=== PATIENT | female | born 1940 | race Caucasian/White ===

== ENCOUNTER 2017-04-09 20:26 | Emergency (ER) | payer OTHER, MEDICARE ==
[~2017-04-09] VITALS: Ht 152.4 cm; Wt 56.7 kg
[~2017-04-09 20:26] MED LIST: AMITRIPTYLINE25 MG PO; ANTIVERT 12.512.5 M1 PO; ATIVAN0.5 MG PO; CENTRUM SILVER1 TA1 PO; DEXILANT60 MG PO; DICYCLOMINE HYD20 MG PO; DILTIAZEM HYDR180 M1 PO; FUROSEMIDE40 MG PO; GABAPENTIN TAB600 MG PO; LASIX40 MG PO; LISINOPRIL40 MG PO; MASON NATURAL325 MG PO; METAMUCIL1 PAC PO; MIRAPEX 0.25M0.25 MG PO; NATURAL IRON65 MG PO; PRAMIPEXOLE D0.25 MG PO; PRAZOSIN HYDROCH2 MG PO; RANITIDINE HYD150 MG PO; ZOLPIDEM TARTRAT5 MG PO
--- NOTE | 2017-04-09 20:55 | ED GI/GU/ABDOMINAL COMPLAINT ---
History of Present Illness General Chief Complaint: General Adult Stated Complaint: "NO Bm X4DAYS, BLEEDING FROM RECTUM" Source: patient Exam Limitations: no limitations Vital Signs & Intake/Output Vital Signs & Intake/Output Vital Signs Date Time Temp Pulse Resp B/P B/P Pulse O2 O2 Flow FiO2 Mean Ox Delivery Rate 04/09 2252 97.0 87 18 190/82 95 Room Air 04/09 2103 Room Air 04/099 99.0 90 18 197/85 97 Room Air ED Intake and Output 04/10 0000 04/09 1200 Intake Total 0 Output Total Balance 0 Intake, Oral 0 Patient 125 lb Weight Weight Reported by Patient Measurement Method Allergies Coded Allergies: Opioids - Morphine Analogues (UPSET STOMACH 01/26/16) Reconcile Medications Amitriptyline Hydrochloride (Amitriptyline) 25 MG TAB 1 TAB PO QHS ANXIETY ( Reported) DILTIAZEM HCL (Diltiazem 24HR Cd) 180 MG CER 1 TAB PO BID HEART HEALTH ( Reported) Furosemide (Lasix) 40 MG TAB 1 TAB PO DAILY FLUID OVERLOAD Gabapentin (Gabapentin Tab 600MG) 600 MG TAB 1 TAB PO DAILY POST HERPATIC NEUROLOGY (Reported) Lisinopril 40 MG TABLET 0.5 TAB PO DAILY HEART HEALTH (Reported) Peg 3350/Na Sulf,Bicarb,Cl/KCl (Golytely Solution) 236-22.74G SOLN.RECON 1 GAL PO X1 PRN CONSTIPATION Prazosin Hydrochloride 2 MG CAP 1 TAB PO BID BLOOD PRESSURE (Reported) Triage Nurses Notes Reviewed? yes ? n Is pt currently ? No Duration: day(s): Timing: recent history Quality/Severity: cramping Location: generalized abdomen Radiation: no radiation Prior Abdominal Problems: similar symptoms Modifying Factors: Worsens With: palpation. Associated Symptoms: had small amount of blood after fleet enema HPI: 76 yo woman h/o uterine cancer s/p xrt, h/o constipation, presents with the sensation of needing to have a bowel movement, but unable to do so for 4 days. She notes rectal pressure, has tried miralax, prunes, and a fleet enema without success. She has follow up with a software systems engineer on in 3 days. Past History Travel History Traveled to [place] past 21 day No Medical History Any Pertinent Medical History? see below for history Neurological: NONE, restless leg syndrome EENT: NONE Cardiovascular: hypertension, varicose vein stripping bilaterally palpitations Respiratory: obstructive sleep apnea Gastrointestinal: constipation, GERD, HERNIA REPAIR Hepatic: NONE Renal: NONE Musculoskeletal: osteoarthritis, RESTLESS LEG SYNDROME scoliosis Psychiatric: NONE Endocrine: NONE Blood Disorders: anemia Cancer(s): uterine cancer SPEECH LANGUAGE PATHOLOGY ASSISTANT/Reproductive: HYSTERECTOMY Other Medical Hx: herpes zoster, postherpetic neuralgia left chest History of MRSA: No History of VRE: No History of CDIFF: No Pneumonia Vaccine: 09/26/10 Influenza Vaccine: 08/26/15 Surgical History Surgical History: appendectomy, hernia repair-inguinal (right), hysterectomy, benign right breast biopsy right inguinal hernia repair Psychosocial History Who do you live with Patient and family Services at Home None What is your primary language Upper Sorbian Tobacco Use: Never used Family History Hx Contributory? No Review of Systems Review of Systems Constitutional: Reports: no symptoms. EENTM: Reports: no symptoms. Respiratory: Reports: no symptoms. Cardiovascular: Reports: no symptoms. GI: Reports: no symptoms. Genitourinary: Reports: no symptoms. Musculoskeletal: Reports: no symptoms. Skin: Reports: no symptoms. Neurological/Psychological: Reports: no symptoms. Hematologic/Endocrine: Reports: no symptoms. Immunologic/Allergic: Reports: no symptoms. All Other Systems: Reviewed and Negative Physical Exam Physical Exam General Appearance: well developed/nourished, mild distress Head: atraumatic, normal appearance Eyes: Bilateral: normal appearance. Ears, Nose, Throat, Mouth: hearing grossly normal Neck: normal inspection, supple, full range of motion Respiratory: normal breath sounds, chest non-tender, no respiratory distress, quiet respiration, lungs clear Cardiovascular: regular rate/rhythm Gastrointestinal: normal bowel sounds, soft, non-tender, no organomegaly, mild distention normal bowel sounds Rectal: rectal vault is empty of stool. No chilo blood. Stool is brown. Trace guaiac positive. Extremities: normal range of motion Neurologic/Psych: no motor/sensory deficits, awake, alert, oriented x 3 Skin: intact, normal color, warm/dry Core Measures ACS in differential dx? No Severe Sepsis Present: No Septic Shock Present: No Progress Differential Diagnosis: constipation versus other Plan of Care: Orders Procedure Date/time Status LIPASE 04/09 2155 Complete COMPREHENSIVE METABOLIC PANEL 04/09 2155 Complete CBC WITHOUT DIFFERENTIAL 04/09 2155 Complete Laboratory Tests 04/09/17 2206: Anion Gap 11, Estimated GFR 54 L, BUN/Creatinine Ratio 37.0 H, Glucose 91, Calcium 9.3, Total Bilirubin 0.3, AST 17, ALT 21, Alkaline Phosphatase 51, Total Protein 6.7, Albumin 4.0, Globulin 2.7, Albumin/Globulin Ratio 1.5, Lipase 88, CBC w Diff NO MAN DIFF REQ, RBC 3.71 L, MCV 89.5, MCH 30.6, RDW 13.2, MPV 6.4 L, Gran % 69.0, Lymphocytes % 18.7 L, Monocytes % 9.1, Eosinophils % 2.4, Basophils % 0.8, Absolute Granulocytes 3.6, Absolute Lymphocytes 1.0 L, Absolute Monocytes 0.5, Absolute Eosinophils 0.1, Absolute Basophils 0, PUBS MCHC 34.2 Diagnostic Imaging: Viewed by Me: Radiology Read. Discussed w/RAD: Radiology Read. Radiology Impression: abd xray... stool burden... full report below. Initial ED EKG: none Comments: PATIENT: BENEDICT FELIPE PRESENT AGE: 76 PATIENT ACCOUNT NO: [id number] : 41 LOCATION: [facility] ORDERING PHYSICIAN: MARIE RODRIGUEZ MD SERVICE DATE: 04/09/17 EXAM TYPE: RAD - [id number] VIEWS EXAMINATION: XR ABDOMEN MULTIPLE VIEWS CLINICAL INDICATION: Constipation COMPARISON: CT from 04/10/2015 TECHNIQUE: 2 views of the abdomen FINDINGS: Nonobstructive bowel gas pattern. No dilated loops of bowel. Moderate to large colonic stool burden. Gas in the rectum. The lung bases are clear. No free air on the upright view. Severe scoliosis. Degenerative changes of the spine. IMPRESSION: Moderate to large colonic stool burden. DICTATED BY: RADHA PURCELL MD DATE/TIME DICTATED:04/09/172235 WHITING CAN WORKER:DANISHA DATE/TIME TRANSCRIBED:04/09/172235 CONFIDENTIAL, DO NOT COPY WITHOUT APPROPRIATE AUTHORIZATION. <Electronically signed in Other Vendor System> SIGNED BY: RADHA PURCELL MD 04/09 Departure Departure Disposition: HOME OR SELF CARE Condition: Stable Clinical Impression Primary Impression: Constipation Referrals: Liudmila ROLLINS MD (PCP/Family) Departure Forms: Customer Survey General Discharge Information Prescriptions: Current Visit Scripts Peg 3350/Na Sulf,Bicarb,Cl/KCl (Golytely Solution) 1 GAL PO X1 PRN CONSTIPATION #1 UNIT Comments Discussed at length with the patient. There is no significant stool burden in the rectal vault. However on the x-ray there is ample stool. I discussed at length starting a trial of GoLYTELY. She will follow-up with her software systems engineer on .
[2017-04-09 22:20] LABS: ABSOLUTE BASOPHIL COUNT 0 /CUMM (0.0-0.2); ABSOLUTE EOSINOPHIL COUNT 0.1 /CUMM (0.0-0.7); ABSOLUTE GRANULOCYTE CT 3.6 /CUMM (1.4-6.5); ABSOLUTE MONOCYTE COUNT 0.5 /CUMM (0.10-0.60); BASOPHIL % 0.8 % (0.0-2.0); EOSINOPHIL % 2.4 % (0-5); HEMATOCRIT 33.2 % (37-47); MEAN CORPUSCULAR HGB 30.6 PG (27.0-31.0); MEAN CORPUSCULAR HGB CONC 34.2 G/DL (33.0-37.0); MEAN CORPUSCULAR VOLUME 89.5 FL (81.0-99.0); MEAN PLATELET VOLUME 6.4 FL (7.4-10.4); PLATELET COUNT 237 /CUMM (130-400); RBC DISTRIBUTION WIDTH 13.2 % (11.5-14.5); RED BLOOD CELL CT 3.71 /CUMM (4.20-5.40); WHITE BLOOD CELL COUNT 5.2 /CUMM (4.8-10.8)
--- NOTE | 2017-04-09 22:40 | RADIOLOGY REPORT ---
EXAMINATION: XR ABDOMEN MULTIPLE VIEWS CLINICAL INDICATION: Constipation COMPARISON: CT from 04/10/2015 TECHNIQUE: 2 views of the abdomen FINDINGS: Nonobstructive bowel gas pattern. No dilated loops of bowel. Moderate to large colonic stool burden. Gas in the rectum. The lung bases are clear. No free air on the upright view. Severe scoliosis. Degenerative changes of the spine. IMPRESSION: Moderate to large colonic stool burden.
[2017-04-09 22:52] VITALS: BP 190/82
[2017-04-09] MEDS ORDERED: GOLYTELY SOLU4000 ML PO (23:05)
== END 2017-04-09 23:26 ==
LOC: ERH 20:26
PROVIDERS: Pediatrics
DX: K59.00 Constipation, unspecified (principal)
CPT/HCPCS: 74020